=== PATIENT | male | born 1935 | race Caucasian/White ===

== ENCOUNTER → 2017-06-03 | Outpatient (CLI) | payer OTHER ==
[~2017-06-03] MED LIST: ACET-1256 PO; ATEN-173 PO; CALCTAB5 PO; CMD25 PO; CMD5 PO; FLM4 PO; LEVO-217 PO; LISI20TA PO; LSX20 PO; MULT-506 PO; NXM/40 PO; OMEG10007 PO; TRAM-10 PO
--- NOTE | 2017-06-03 09:49 | DIAGNOSTIC IMAGING REPORT ---
CHEST 2 VIEWS ROUTINE CLINICAL HISTORY: C61 Prostate [id number] COMPARISON STUDY: 04/25/2009 FINDINGS: The heart is enlarged. There are postsurgical changes of a midline sternotomy and valvular replacement. There is a bandlike device projected over the left pulmonary artery. There is no focal pulmonary consolidation. There is mild nonspecific subpleural edema. There is a trace right pleural effusion. IMPRESSION: 1. Cardiomegaly 2. Subtle nonspecific subpleural edema 3. No evidence of focal pulmonary consolidation Electronically signed by: Ronaldo Zhao M.D. 06/03/2017 9:47 AM Dictated Date/Time: 06/03/2017 9:45 AM
--- NOTE | 2017-06-03 10:21 | DIAGNOSTIC IMAGING REPORT ---
RENAL ULTRASOUND HISTORY: C61 Prostate [id number] COMPARISON: Abdomen and pelvis CT 05/29/2016. Renal ultrasound 05/08/2015. FINDINGS: Right kidney: 11.3 cm. No hydronephrosis. Moderate cortical renal thinning with increased cortical echogenicity. Multiple cysts are again noted with the largest measuring 3.6 cm. Left kidney: 11.4 cm. No hydronephrosis. Moderate cortical renal thinning with increased cortical echogenicity. Multiple cysts are again noted with the largest measuring 5.6 cm. Bladder: No bladder wall thickening. The bilateral ureteral jets were identified. IMPRESSION: 1. Multiple bilateral renal cysts are again noted with the largest on the left measuring 5.6 cm. 2. Moderate cortical renal thinning with increased cortical echogenicity consistent with medical renal disease. Electronically signed by: Nghia Santos M.D. 06/03/2017 10:19 AM Dictated Date/Time: 06/03/2017 10:16 AM
== END | disposition home or self-care (01) ==
LOC: C.ULTR 09:11
PROVIDERS: ATTEND Urology
DX: R39.198 Other difficulties with micturition (principal)

== ENCOUNTER → 2018-05-26 | Outpatient (CLI) | payer OTHER ==
[2018-05-26 13:36] LABS: ALBUMIN 3.5 gm/dl (3.4-5.0); ALKALINE PHOSPHATASE 56 U/L (45-117); ALT/SGPT 14 U/L (12-78); AST/SGOT 16 U/L (15-37); BLOOD UREA NITROGEN 24 mg/dl (7-18); CALCIUM 8.5 mg/dl (8.5-10.1); CARBON DIOXIDE 30 mmol/L (21-32); GLUCOSE 117 mg/dl (70-99); POTASSIUM 4.2 mmol/L (3.5-5.1); SODIUM 143 mmol/L (136-145); TOTAL PROTEIN 6.9 gm/dl (6.4-8.2)
== END | disposition home or self-care (01) ==
LOC: C.LABMFLN 09:01
PROVIDERS: ATTEND Urology
DX: R35.0 Frequency of micturition (principal)